=== PATIENT | male | born 1995 | race Caucasian/White ===

== ENCOUNTER 2022-06-05 08:03 | Emergency (ER) | payer BC, MEDICAID ==
[2022-06-05 09:15] LABS: ESTIMATED GFR 119 mL/min (>60)
[2022-06-05] MEDS ORDERED: Ondansetron 4 MG/2 ML SDV IVPUSH ONE (10:14)
[2022-06-05] MEDS ORDERED: Sodium Chloride 0.9% 10 ML Syringe FLUSH PRN (10:14)
[2022-06-05] MEDS ORDERED: Ketorolac 30 MG/ML SDV IVPUSH ONE (10:14)
[2022-06-05] MEDS ORDERED: Sodium Chloride 0.9% 1,000 ML IV SCH (10:15)
[2022-06-05] MEDS ORDERED: Iopamidol 612 MG/ML 100 ML Bottle IV ONE (10:27)
[2022-06-05] MEDS ORDERED: Sodium Chloride 0.9% 100 ML IV ONE (10:27)
[2022-06-05] MEDS ORDERED: Sodium Chloride 0.9% 10 ML Syringe FLUSH ONE (10:27)
[2022-06-05] MEDS ORDERED: Prochlorperazine 10 MG/2 ML SDV IVPUSH ONE (11:51)
[2022-06-05] MEDS ORDERED: fentaNYL 100 MCG/2 ML SDV IVPUSH ONE (11:51)
== END 2022-06-05 14:46 | disposition home or self-care (01) ==
LOC: JP.ED 08:03
DX: N39.0 Urinary tract infection, site not specified (principal); K59.04 Chronic idiopathic constipation
CPT/HCPCS: 36415; 74018; 74177; 76870; 80053; 81001; 83605; 83690; 85025; 87086; 96361; 96374; 96375; 99284; J0780; J1885; J2405; J3010; J3490; J7030; Q9967; 99283

== ENCOUNTER 2022-10-12 08:35 | Day surgery (SDC) | payer MEDICAID ==
[~2022-10-12 08:35] MED LIST: Midazolam 1 MG/ML 2 ML SDV ONE; Propofol 200 MG/20 ML SDV ONE; fentaNYL 100 MCG/2 ML SDV ONE
[2022-10-12] MEDS ORDERED: Lactated Ringers 1,000 ML IV SCH (09:00)
[2022-10-12] MEDS ORDERED: Propofol 200 MG/20 ML SDV ONE (10:12)
== END 2022-10-12 11:30 | disposition home or self-care (01) ==
LOC: JP.SDS 08:35
PROVIDERS: ATTEND Student in an Organized Health Care Education/Training Program
DX: K21.00 Gastro-esophageal reflux disease with esophagitis, without bleeding (principal); K29.50 Unspecified chronic gastritis without bleeding; F41.9 Anxiety disorder, unspecified; Z79.899 Other long term (current) drug therapy
CPT/HCPCS: 43239; 88305; 88342; J2250; J2704; J3010; J7120

== ENCOUNTER 2022-11-29 07:34 | Emergency (ER) | payer MEDICAID, OTHER ==
[2022-11-29] MEDS ORDERED: Ketorolac 30 MG/ML SDV IM ONE (08:03)
[2022-11-29] MEDS ORDERED: Lidocaine 1% with EPINEPHrine 1:100,000 50 ML MDV SUBCUT STA (08:03)
[2022-11-29] MEDS ORDERED: Bacitracin Oint 1 GM U/D Packet TOP ONE (08:03)
== END 2022-11-29 08:28 | disposition home or self-care (01) ==
LOC: JP.ED 07:34
DX: S01.01XA Laceration without foreign body of scalp, initial encounter (principal); Y92.89 Other specified places as the place of occurrence of the external cause; Y99.0 Civilian activity done for income or pay
CPT/HCPCS: 12001; 96372; 99282; 99283; J1885